=== PATIENT | male | born 1950 | race Caucasian/White ===

== ENCOUNTER 2016-04-09 11:30 | Inpatient (IN) | payer MEDICARE ==
--- NOTE | 2016-06-01 12:17 | HP ---
DATE OF CLINIC: 05/16/16 THIEN JOHNSON : 1950 PLANNED PROCEDURE: Right total knee arthroplasty DATE OF PROCEDURE: June 04, 2016 SURGEON: Dr. Michael Lora MD PCP: Dr. Ras Daily HISTORY OF PRESENT ILLNESS Thien Johnson is a 65 year old male. * Medication list reviewed with patient allergy list reviewed with patient. Mr. Johnson is in today pre-operatively for his upcoming right total knee arthroplasty with Dr. Lora on 06/04/16. Patient presents in good spirits and is eager to proceed. He denies recent illness or change in health. He does note remotely following a sinus surgery that he became bradycardic in the high 20's post-operatively. He recovered without complication. He does have sinus bradycardia with a first degree block for which he states he is asymptomatic. No other surgical complications. Current labs are pending. His recent consult with Dr. Lora follows. Mr. Johnson is a 65-year-old male who I previously saw 09/07/15 after referral from [facility] for discussion of right knee issues. He has progressive weightbearing related discomfort over the last several years. This was worse with loaded flexion. It has become quite limiting for him. He has prior radiographs from 07/28/15 showing tricompartmental degenerative changes with medial compartment narrowing, mild lateral irregularity and lateral chondrocalcinosis. He has involvement of the patellofemoral articulation as well. Of note, he has had prior significant temporary improvement with intraarticular corticosteroid. After I saw him in August he was sent for viscosupplementation and has been through 3 injections with [facility] completing 10/20/15. He has had some improvement, but continues to feel a sensation of instability and difficulty with prolonged weightbearing. He has been doing water based exercise and "the pool has made a huge difference". He is interested in consideration of definitive management given his persisting limitations. No recent illnesses, no significant comorbidities. CURRENT MEDICATION * Aspirin 325 MG Tablet 1 once a day 0 days, 0 refills * B Complex Vitamins Capsule as directed 0 days, 0 refills * Curcumin Powder as directed 375, 0 days, 0 refills * Vitamin D 2000 UNIT Tablet as directed 0 days, 0 refills PAST MEDICAL/SURGICAL HISTORY Reported: Medical: History of Arthritis. Surgical / Procedural: Prior surgery Nose-diviated septum 06/2000. SOCIAL HISTORY Behavioral: Never smoked. Smoking status: Never smoker. Alcohol: Alcohol 1 a day. Drug Use: Using marijuana History of. Work: Retired. ALLERGIES * No Known Allergies FAMILY HISTORY 2 children living Family medical history Depression-Mother Cancer mother Heart disease Father REVIEW OF SYSTEMS Systemic: No fever and no recent weight change. Head: No head symptoms. Cardiovascular: No cardiovascular symptoms h/o sinus shimon and 1st degree AV block. Pulmonary: No pulmonary symptoms. Gastrointestinal: No gastrointestinal symptoms. Psychological: No psychological symptoms. Skin: No skin lesions and no rash. PHYSICAL FINDINGS * Vitals taken 05/16/2016 03:07 pm BP-Sitting R 113/86 mmHg 100 - 120/60 - 80 BP Cuff Size Regular Pulse Rate-Sitting 55 bpm 50 - 100 Temp-Oral 97 F 96 - 101 Height 70 in 64 - 74 Weight 230 lbs 123 - 215 Body Mass Index 33.0 kg/m2 Body Surface Area 2.22 m2 Pain Level 2 Ears, Nose, Throat: * ENT: normal. Lungs: * Clear to auscultation. Cardiovascular: Heart Rate And Rhythm: * Abnormal sinus bradycardia, 1st degree AV block. Abdomen: * Normal. Neurological: Motor: * Dominant Hand = Right Hand. Patient is an obese male in no acute distress, normal-appearing mood and affect. He has a mildly stiff-legged gait at startup bilaterally. On standing he has relatively normal alignment that is symmetric. Right knee exam shows skin integrity to be well-preserved, no wounds, rashes or lesions. Mild swelling, no gross effusion. Motion is 5-120 degrees. No focal medial or lateral jointline tenderness, although some diffuse mild discomfort. No significant pain with Audrey's. He does have mild pain and crepitation with patellar compression. Ligamentous exam is intact for cruciates and collaterals. Mildly tender over the anteromedial proximal tibia. Calf is soft and NT. No thigh or calf atrophy or asymmetry compared to the contralateral side, but relatively poor defined musculature bilaterally. Distal neurovascular exam is intact and symmetric. Gentle rotation of the hip is nonirritable. Sitting SLR is negative. Contralateral knee shows skin integrity is well preserved, no wounds, rashes or lesions. No swelling or gross effusion. Reasonable alignment. Motion is 0-130 degrees. No periarticular tenderness. Normal ligamentous exam. TESTS Prior xrays are as noted above. ASSESSMENT * Localized primary osteoarthritis of the right knee DJD, right knee. THERAPY * Patient fall risk screen negative. * Patient eligible for fall risk assessment. Patient received fall risk assessment. PLAN * Unilateral primary osteoarthritis, right knee Physical Therapy: *Other * OTHER OxyCONTIN 10 MG T12A, 1 po q 12 hours-TO BE USED FOR AFTER SURGERY, 10 days, 0 refills TraMADol HCl 50 MG TABS, 1 po q 6 hours prn pain-TO BE USED FOR AFTER SURGERY, 5 days, 0 refills OxyCODONE HCl 5 MG TABS, 1-2 po q 4 hours for break thru pain if needed-TO BE USED FOR AFTER SURGERY, 5 days, 0 refills * Total knee arthroplasty -Right Discussed with patient in detail the limitations, expectations as well as risks and possible complications of surgery including, but not limited to wound problems or infection, neurovascular injury, continued knee pain or dysfunction, including the possibility of prosthetic wear or failure over time that may require additional operative or nonoperative treatment. Patient also realizes the perioperative risks including risks associated with anesthesia and would like to proceed. A full PAR conference was held, questions and concerns addressed and informed consent was obtained. Patient will be sent from my office for completion of the preoperative workup. [facility] consult for perioperative medical management. Patient will use aspirin 325mg daily for 6 weeks postoperatively for DVT prophylaxis. Patient would like to perform their postop PT at [facility] with right total knee arthroplasty protocol. CARE TEAM Ras Daily MD [facility] CC: Ras Daily MD [facility]
[2016-06-04] MEDS ORDERED: LACTATED RINGERS 1,000 ML ONE (06:00)
[2016-06-04] MEDS ORDERED: IV START KIT ONE (06:01)
[2016-06-04] MEDS ORDERED: CEFAZOLIN SODIUM 2 GRAM PREMIX 100 ML IV ONE (06:36)
[2016-06-04] MEDS ORDERED: ONDANSETRON 4 MG/2ML 2 ML VIAL IV ONE (06:45)
[2016-06-04] MEDS ORDERED: CLONIDINE HCL 0.1 MG/24 HR (7 DAY PATCH) TD SCH (06:45)
[2016-06-04] MEDS ORDERED: CELECOXIB 200 MG CAPSULE PO ONE (06:45)
[2016-06-04] MEDS ORDERED: BUPIVACAINE 0.25% (MDV) 24 ML, MORPHINE SULFATE 8 MG, EPINEPHRINE 0.3 MG in SODIUM CHLO... IF PRN (06:45)
[2016-06-04] MEDS ORDERED: TRAMADOL HCL 50 MG TABLET PO ONE (06:45)
[2016-06-04] MEDS ORDERED: FAMOTIDINE 20 MG TABLET PO ONE (06:45)
[2016-06-04] MEDS ORDERED: TRANEXAMIC ACID 1,000 MG in SODIUM CHLORIDE 0.9% 100 ML IV PRN (06:45)
[2016-06-04] MEDS ORDERED: BUPIVACAINE 0.25% (MDV) 20 ML in SODIUM CHLORIDE 0.9% FLUSH 20 ML IF PRN (06:45)
[2016-06-04] MEDS ORDERED: GABAPENTIN 600 MG TABLET PO ONE (06:45)
[2016-06-04] MEDS ORDERED: OXYCODONE HCL 10 MG TAB.SR PO ONE ×2 (06:45→07:29)
[2016-06-04] MEDS ORDERED: POLYMYXIN B SULFATE 500,000 UNITS, BACITRACIN 25,000 UNITS in SODIUM CHLORIDE 3 L IRRIG... IR PRN (06:45)
[2016-06-04] MEDS ORDERED: CEFAZOLIN SODIUM 2 GRAM PREMIX 100 ML IV PRN (06:45)
[2016-06-04] MEDS ORDERED: GABAPENTIN 600 MG TABLET ONE (07:29)
[2016-06-04] MEDS ORDERED: ONDANSETRON 4 MG/2ML 2 ML VIAL ONE ×2 (07:29→10:27)
[2016-06-04] MEDS ORDERED: CLONIDINE HCL 0.1 MG/24 HR (7 DAY PATCH) TD ONE (07:29)
[2016-06-04] MEDS ORDERED: TRAMADOL HCL 50 MG TABLET ONE (07:29)
[2016-06-04] MEDS ORDERED: FAMOTIDINE 20 MG TABLET ONE (07:29)
[2016-06-04] MEDS ORDERED: FENTANYL 100 MCG/2 ML VIAL ONE (07:30)
[2016-06-04] MEDS ORDERED: CELECOXIB 200 MG CAPSULE ONE (07:30)
[2016-06-04] MEDS ORDERED: MIDAZOLAM HCL 1 MG/ML 2ML VIAL ONE ×2 (07:30→09:13)
[2016-06-04] MEDS ORDERED: NERVE BLOCK PROCEDURAL TRAY 1 EACH ONE (07:59)
[2016-06-04] MEDS ORDERED: ROPIVACAINE 0.5% 30 ML VIAL ONE (08:00)
[2016-06-04] MEDS ORDERED: SPINAL PROCEDURAL TRAY 1 EACH ONE (08:46)
[2016-06-04] MEDS ORDERED: LIDOCAINE 2% (PRES FREE) 5 ML VIAL ONE (09:17)
[2016-06-04] MEDS ORDERED: PROPOFOL 20 ML IV ONE ×3 (09:17→10:43)
[2016-06-04] MEDS ORDERED: FENTANYL 100 MCG/2 ML VIAL IV PRN (10:56)
[2016-06-04] MEDS ORDERED: HYDROMORPHONE HCL 1 MG/ML SYRINGE IV PRN (10:56)
[2016-06-04] MEDS ORDERED: PROMETHAZINE HCL 25 MG/ML VIAL IM PRN (10:56)
[2016-06-04] MEDS ORDERED: MEPERIDINE 25 MG/ML SYRINGE IV PRN (10:56)
[2016-06-04] MEDS ORDERED: ONDANSETRON 4 MG/2ML 2 ML VIAL IV PRN ×2 (10:56→11:59)
[2016-06-04] MEDS ORDERED: ON-Q PUMP/ROPIVACAINE 0.2% 450 ML in PREMIX BAG 1 EACH NB PRN ×2 (10:56→11:59)
[2016-06-04] MEDS ORDERED: ATROPINE SULFATE 0.4 MG/1 ML VIAL IV PRN (10:56)
[2016-06-04] MEDS ORDERED: NALOXONE HCL 0.4 MG/ML VIAL IV PRN (10:56)
[2016-06-04] MEDS ORDERED: GLYCOPYRROLATE 0.2 MG/ML 1ML VIAL ONE ×2 (10:59→11:04)
[2016-06-04] MEDS ORDERED: LACTATED RINGERS 1,000 ML IV SCH (11:00)
--- NOTE | 2016-06-04 11:16 | PCMBPN ---
Brief Post Op Note: Date of Procedure: 06/04/16 Preoperative Diagnosis: DJD right knee Postoperative Diagnosis: 1. [Same] Procedure: right TKA Surgeon: Michael Lora MD Assist: Caesar (GORDY) Anesthesia: spinal/add block ([place]) Condition: stable to PAR Complications: none IV Fluids: 1600 mLs of LR Urine Output: 200 mLs Estimated Blood Loss: 200 mLs Tourniquet Time: ~45 minutes Specimens: [N/A] Implants: Journey Drains: none
[2016-06-04] MEDS ORDERED: ON-Q PUMP/ROPIVACAINE 0.2% 450 ML ONE (11:29)
--- NOTE | 2016-06-04 11:41 | OP ---
NATHALIE TALAMANTES [id number] : 1950 DATE OF SURGERY: June 04, 2016 PREOPERATIVE DIAGNOSIS: Degenerative joint disease right knee POSTOPERATIVE DIAGNOSIS: Same PROCEDURE: Right Total Knee Arthroplasty COMPONENTS: Journey size 7 BCS Oxinium cemented femoral component, size 7 tibial base plate, 9mm BCS cross-linked polyethylene articular insert, 38mm resurfacing patella. SURGEON: Michael Lora M.D. MANAGER WATER WASTEWATER: Caesar SUTHERLAND) ANESTHESIA: Spinal plus adductor nerve block per [place]. ESTIMATED BLOOD LOSS: 200 cc IV FLUID REPLACEMENT: per anesthesia, 1.6 liters crystalloid. URINE OUTPUT: 200 cc DRAINS: None TOURNIQUET TIME: Approximately 45 minutes COMPLICATIONS: None HISTORY: Briefly, patient is a 65-year-old male with clinical and radiographic evidence of advanced degenerative disease of their right knee. They have failed traditional non-operative management and desire elective total knee arthroplasty. For additional details, please refer to the previously dictated Preoperative History and Physical Examination. A PAR conference was held, questions and concerns were addressed, and informed consent was obtained. FINDINGS: Tricompartmental changes. There is chondrocalcinosis within all 3 compartments. He has more significant medial changes as well as the trochlear groove. He had an approximately 5 degree flexion contracture under anesthesia. PROCEDURE: The patient was taken to the operating room after the placement of a spinal anesthetic and regional nerve block. They were placed supine on the operating room table, a tourniquet was applied to the proximal thigh and the right lower extremity was prepped and draped out in the usual sterile fashion. Preoperative IV antibiotics were given empirically. Intraoperative DVT prophylaxis consisted of contralateral foot pumps. Personal filtration suits were used as was a closed room environment. A WHO timeout was taken. Surgical site was identified and confirmed. The leg was then elevated and the tourniquet inflated after gravity exsanguination. This was released after initial exposure and not utilized again until cementation. Tranexamic acid was infiltrated over 10 minutes prior to incision, 1 gram dose per protocol. A similar 2nd dose was given at initiation of closure. With the knee flexed, an anteromedial incision was made from the level of the tibial tubercle to two centimeters proximal to the superior pole of the patella. A medial arthrotomy was performed with a mini-mid vastus approach. A medial subperiosteal proximal tibial release was performed and a portion of the anterior fat pad was excised to improve visualization. The supra-patellar pouch was raised subperiosteally. The anterior and posterior cruciate ligaments were excised as were the remaining portions of the anterior horns of the medial and lateral menisci. Minimally invasive instrumentation and philosophy were used throughout the procedure in an attempt to decrease the extent of soft tissue disruption/damage. Patient matched cutting blocks were also used as per our preoperative plan. The [employer] patient matched distal femoral cutting block was applied and secured to the bone. We confirmed that the alignment matched our preoperative plan and made the distal femoral cut. We confirmed the size of the femur and placed the appropriate 5-in-1 cutting block making our anterior and posterior condylar cuts followed by the chamfer cuts. Residual marginal osteophytes were removed. Attention was then directed to the tibia which was retracted anteriorly. Remaining meniscal tissue was excised. The Visionaire patient matched tibial block was then positioned and secured to bone. Alignment was confirmed as per our preoperative plan and the proximal tibial cut made. The tibia was sized and we passed the 11 mm. punch. We then balanced the flexion and extension gaps by performing a limited posterior capsular release. We confirmed hemostasis. We then completed the femoral preparation by reaming and chiseling the notch. Femoral and tibial trial components were placed. We were able to obtain full extension with nice roll back and good coronal plane alignment and stability. The patella tracked well and was prepared using the Stephania patellar reaming system removing 9 mm. of bone. Osteophytes were removed prior to this with a rongeur and we performed a circumferential limited denervation using cautery. This was sized accordingly and punch holes were drilled. We marked our tibial rotation and removed the trial components after passing the cruciform tibial punch. The knee was then re-exsanguinated and the tourniquet inflated. Double antibiotic pulsatile lavage was used to irrigate the knee and clean the cancellous ayan interstices which were then carefully dried. Periarticular injection was done at this point per protocol of the posterior capsule, posteromedial knee and synovium. Two doses of high viscosity, antibiotic impregnated polymethylmethacrylate were used to cement the tibial, femoral, and then patellar components. The knee was held in extension while the cement cured. All residual methacrylate was meticulously removed. Attention was then directed towards closure. We irrigated and the retinaculum was closed with a running #2 absorbable Strato-Fix suture. A second periarticular injection was done at this point per protocol. The repair was checked in maximum flexion. We then lightly irrigated the subcutaneous tissue and closed with interrupted 2-0 and 3-0 Vicryl Plus. The skin was then reapproximated with a subcuticular 4-0 Monocryl followed by Dermabond Prineo. A sterile compression dressing was applied. The patient was then transferred to their hospital bed and sent to the post anesthesia recovery room in stable condition. They tolerated the procedure well. Sponge, instrument, and needle count were correct. CC: Ras Daily MD [facility]
[2016-06-04] MEDS ORDERED: TEMAZEPAM 15 MG CAPSULE PO PRN (11:59)
[2016-06-04] MEDS ORDERED: HYDROMORPHONE HCL 0.5 MG/0.5 ML SYRINGE IV PRN (11:59)
[2016-06-04] MEDS ORDERED: CALCIUM CARBONATE 500 MG TAB.CHEW PO PRN (11:59)
[2016-06-04 12:11] VITALS: BMI 31.6
--- NOTE | 2016-06-04 13:17 | RAD ---
KNEE RIGHT 1 OR 2 VIEWS COMPARISON: Right knee 4 views, 07/28/2015 HISTORY: Immediately postop right total knee arthroplasty. VIEWS: Right knee AP and crosstable lateral. FINDINGS: Bones: Normal. Joints: Satisfactory appearance of the right total knee arthroplasty. Soft tissue: Normal. IMPRESSION: Satisfactory appearance of the right total knee arthroplasty.
[2016-06-04] MEDS ORDERED: PUMP TUBING ONE (13:38)
[2016-06-04] MEDS: D5 1/2NS with 20 mEq KCL 1,000 ML IV SCH (13:42)
[2016-06-04] MEDS: KETOROLAC TROMETHAMINE 30 MG/ML 1 ML VIAL IV PRN (15:04)
[2016-06-04] MEDS: OXYCODONE HCL 5 MG TABLET PO PRN ×2 (15:37→21:09)
[2016-06-04] MEDS: CEFAZOLIN SODIUM 1 GRAM PREMIX 1 G in Premix (D5W) 50 ml 1 EACH IV SCH (16:49)
[2016-06-04] MEDS: ACETAMINOPHEN 500 MG TABLET PO SCH (17:31)
[2016-06-04] MEDS: DOCUSATE SODIUM 100 MG CAPSULE PO SCH (21:09)
[2016-06-04] MEDS: ASCORBIC ACID 500 MG TABLET PO SCH (21:09)
[2016-06-05] MEDS ORDERED: CEFAZOLIN SODIUM 1 GRAM PREMIX 50 ML IV ONE (00:14)
[2016-06-05] MEDS: ACETAMINOPHEN 500 MG TABLET PO SCH ×4 (00:16→17:28)
[2016-06-05] MEDS: CEFAZOLIN SODIUM 1 GRAM PREMIX 1 G in Premix (D5W) 50 ml 1 EACH IV SCH (00:16)
[2016-06-05] MEDS: KETOROLAC TROMETHAMINE 30 MG/ML 1 ML VIAL IV PRN (00:22)
[2016-06-05] MEDS: D5 1/2NS with 20 mEq KCL 1,000 ML IV SCH ×4 (00:54→20:25)
[2016-06-05] MEDS: OXYCODONE HCL 5 MG TABLET PO PRN ×5 (02:27→20:31)
[2016-06-05] MEDS ORDERED: REMOVE PATCH 1 EACH UNIT TD SCH (06:45)
[2016-06-05 06:47] LABS: HEMATOCRIT 32.3 % (32.0-52.0); HEMOGLOBIN 10.8 gm/l (14.0-18.0); MEAN CELL VOLUME 98.5 fl (80.0-94.0); MEAN CORPUSCULAR HEMOGLOBIN 32.9 pg (27.0-31.0); MEAN CORPUSCULAR HGB CONC 33.4 g/dl (33.0-37.0); RED CELL DISTRIBUTION WIDTH 11.9 % (11.5-14.5)
[2016-06-05 07:04] LABS: CALCIUM 8.3 mg/dL (8.6-10.3)
--- NOTE | 2016-06-05 07:32 | PDOC43 ---
- Subjective Findings: Pt seen this morning up and doing fine at this point. Pain seems controlled. He is ready to get out of bed. Subjective: Reports Pain Tolerable, Denies Flatus, Denies Chest Pain, Denies Shortness of Breath, Denies Nausea, Denies Vomiting - Objective Vital Signs Temperature 98.4 F 06/05/16 03:54 Pulse Rate 57 06/05/16 03:54 Respiratory Rate 16 06/05/16 03:54 Blood Pressure 115/65 06/05/16 03:54 O2 Saturation by Pulse Oximetry 97 06/05/16 03:54 Oxygen Delivery Method Nasal Cannula Oxygen Flow Rate 2 Laboratory 06/05/16 06:10 06/05/16 06:10 06/05/16 06:10 RBC 3.28 L MCV 98.5 H MCH 32.9 H Estimated GFR 113 H Calcium 8.3 L Active Medication Orders Category Date Time Status Acetaminophen [Tylenol] Med 06/04/16 18:00 Active 1,000 mg PO Q6H Ascorbic Acid [Vitamin C] Med 06/04/16 21:00 Active 500 mg PO BID Aspirin (Enteric Coated) [Ecotrin] Med 06/05/16 09:00 Active 325 mg PO DAILY Bisacodyl [Dulcolax] Med 06/07/16 11:06 Active 10 mg HI DAILY PRN Calcium Carbonate [Tums] Med 06/04/16 11:59 Active 1,000 - 2,000 mg PO Q2H PRN Celecoxib [Celebrex] Med 06/05/16 09:00 Active 200 mg PO DAILY D5 1/2NS with 20 mEq KCL [D51/2NS with 20 mEq KCL] 1, Med 06/04/16 11:59 Active 000 ml IV 125 mls/hr Docusate Sodium [Colace] Med 06/04/16 21:00 Active 100 mg PO BID Hydromorphone HCl [Dilaudid] Med 06/04/16 11:59 Active 0.5 mg IV Q1H PRN Ketorolac Tromethamine [Toradol] Med 06/04/16 11:59 Active 30 mg IV Q6H PRN Magnesium Hydroxide [Milk of Magnesia] Med 06/05/16 11:06 Active 30 ml PO DAILY PRN Multivitamins [One-A-Day] Med 06/05/16 09:00 Active 1 tab PO DAILY On-Q Pump/Ropivacaine 0.2% 450 ml Med 06/04/16 11:59 Active Premix Bag [Premix Fluid] 1 each NB Q50H Ondansetron 4 mg/2ml Vial [Zofran] Med 06/04/16 11:59 Active 4 - 6 mg IV Q6H PRN Oxycodone HCl [Roxicodone] Med 06/04/16 11:59 Active 5 - 10 mg PO Q4H PRN Remove Patch Med 06/05/16 11:06 Once 1 each TD X1 ONE Sodium Chloride 0.9% Flush [Normal Saline 10ml Flush] Med 06/04/16 11:59 Active 10 - 50 ml IV PRN PRN Sodium Chloride 0.9% Flush [Normal Saline 10ml Flush] Med 06/04/16 17:00 Active 10 ml IV Q8HR Temazepam [Restoril] Med 06/04/16 11:59 Active 15 mg PO BEDTIME PRN Tramadol HCl [Ultram] Med 06/04/16 17:30 Active 50 mg PO Q6H PRN Vitamin D3 Med 06/05/16 09:00 Active 1,000 units PO DAILY Intake and Output 06/03/16 06/04/16 06/05/16 23:59 23:59 23:59 Intake Total 3814 1150 Output Total 1050 1450 Balance 2764 -300 General: Afebrile HEENT: Atraumatic Lungs: Normal Air Movement Abdomen: Non-Distended Skin: Normal Color Neurological: Alert, Oriented x 4 Psych/Mental Status: Normal Mood - Right Lower Extremity Motor: Extensor Hallucis Longus: 5/5, Tibialis Anterior: 5/5, Gastrocnemius: 5/5 , Peroneals: 5/5, Quadriceps: 3/5 Gross Sensation to Light Touch: Present: Deep Peroneal Nerve, Superficial Peroneal Nerve Capillary Refill: < 3 Seconds Motion: Calf soft NT Does have a little tenderness around his Achilles tendon distally but no skin breakdown/tendon intact. Knee Rom 0-65 Min assist with SLR - Problems (1) Status post right knee replacement Status: AcuteAssessment/Plan: Pod#1 1. Physical Therapy: Mobilize with PT/OT, encouraged bed exercise 2. Pain Control:Per protocol and nerve cath 3. DVT Prophylaxis: ASA, foot pumps and mobility 4. Disposition:Doing fine at this point 5. Medical Issues:Acute blood loss anemia - asymptomatic. Will monitor H/H. Anticipate d/c tomorrow
[2016-06-05] MEDS: MULTIVITAMINS 1 TAB TABLET PO SCH (08:19)
[2016-06-05] MEDS: ASPIRIN (ENTERIC COATED) 325 MG TABLET.EC PO SCH (08:19)
[2016-06-05] MEDS: VITAMIN D3 1,000 UNITS CAP.LIQ PO SCH (08:19)
[2016-06-05] MEDS: DOCUSATE SODIUM 100 MG CAPSULE PO SCH ×2 (08:19→20:31)
[2016-06-05] MEDS: ASCORBIC ACID 500 MG TABLET PO SCH ×2 (08:19→20:31)
[2016-06-05] MEDS ORDERED: CELECOXIB 200 MG CAPSULE PO SCH (09:00)
[2016-06-05] MEDS ORDERED: REMOVE PATCH 1 EACH UNIT TD ONE (11:06)
[2016-06-05] MEDS: TRAMADOL HCL 50 MG TABLET PO PRN ×2 (14:07→21:59)
[2016-06-05] MEDS: MAGNESIUM HYDROXIDE 30 ML UDCUP PO PRN (16:21)
[2016-06-06] MEDS: ACETAMINOPHEN 500 MG TABLET PO SCH ×3 (00:17→11:58)
[2016-06-06] MEDS: OXYCODONE HCL 5 MG TABLET PO PRN ×3 (00:22→09:27)
[2016-06-06] MEDS: D5 1/2NS with 20 mEq KCL 1,000 ML IV SCH (03:23)
[2016-06-06] MEDS: MAGNESIUM HYDROXIDE 30 ML UDCUP PO PRN (05:45)
[2016-06-06 06:47] LABS: HEMATOCRIT 31.6 % (32.0-52.0); HEMOGLOBIN 10.7 gm/l (14.0-18.0)
--- NOTE | 2016-06-06 08:23 | PDOC43 ---
- Subjective Findings: Pt seen this am up and doing better. He feels much improved from yesterday. States he would like to go home today. Subjective: Reports Flatus, Reports Pain Tolerable, Denies Chest Pain, Denies Shortness of Breath, Denies Nausea, Denies Vomiting, Denies Fever - Objective Vital Signs Temperature 98.2 F 06/06/16 07:28 Pulse Rate 67 06/06/16 07:28 Respiratory Rate 16 06/06/16 07:45 Blood Pressure 135/82 06/06/16 07:28 O2 Saturation by Pulse Oximetry 95 06/06/16 07:28 Oxygen Delivery Method Room Air Oxygen Flow Rate 0 Laboratory 06/06/16 06:15 06/05/16 06:10 Active Medication Orders Category Date Time Status Acetaminophen [Tylenol] Med 06/04/16 18:00 Active 1,000 mg PO Q6H Ascorbic Acid [Vitamin C] Med 06/04/16 21:00 Active 500 mg PO BID Aspirin (Enteric Coated) [Ecotrin] Med 06/05/16 09:00 Active 325 mg PO DAILY Bisacodyl [Dulcolax] Med 06/07/16 11:06 Active 10 mg [place] DAILY PRN Calcium Carbonate [Tums] Med 06/04/16 11:59 Active 1,000 - 2,000 mg PO Q2H PRN Celecoxib [Celebrex] Med 06/05/16 09:00 Active 200 mg PO DAILY D5 1/2NS with 20 mEq KCL [D51/2NS with 20 mEq KCL] 1, Med 06/04/16 11:59 Active 000 ml IV 125 mls/hr Docusate Sodium [Colace] Med 06/04/16 21:00 Active 100 mg PO BID Hydromorphone HCl [Dilaudid] Med 06/04/16 11:59 Active 0.5 mg IV Q1H PRN Magnesium Hydroxide [Milk of Magnesia] Med 06/05/16 11:06 Active 30 ml PO DAILY PRN Multivitamins [One-A-Day] Med 06/05/16 09:00 Active 1 tab PO DAILY On-Q Pump/Ropivacaine 0.2% 450 ml Med 06/04/16 11:59 Active Premix Bag [Premix Fluid] 1 each NB Q50H Ondansetron 4 mg/2ml Vial [Zofran] Med 06/04/16 11:59 Active 4 - 6 mg IV Q6H PRN Oxycodone HCl [Roxicodone] Med 06/04/16 11:59 Active 5 - 10 mg PO Q4H PRN Sodium Chloride 0.9% Flush [Normal Saline 10ml Flush] Med 06/04/16 11:59 Active 10 - 50 ml IV PRN PRN Sodium Chloride 0.9% Flush [Normal Saline 10ml Flush] Med 06/04/16 17:00 Active 10 ml IV Q8HR Temazepam [Restoril] Med 06/04/16 11:59 Active 15 mg PO BEDTIME PRN Tramadol HCl [Ultram] Med 06/04/16 17:30 Active 50 mg PO Q6H PRN Vitamin D3 Med 06/05/16 09:00 Active 1,000 units PO DAILY Intake and Output 06/04/16 06/05/16 06/06/16 23:59 23:59 23:59 Intake Total 3814 2380 1620 Output Total 1050 3075 1200 Balance 2764 -695 420 General: Afebrile HEENT: Atraumatic Lungs: Normal Air Movement Abdomen: Non-Distended Skin: Normal Color Neurological: Alert, Oriented x 4 Psych/Mental Status: Normal Mood - Right Lower Extremity Incision: Well Approximated, No Drainage, No Erythema Motor: Extensor Hallucis Longus: 5/5, Tibialis Anterior: 5/5, Gastrocnemius: 5/5 , Peroneals: 5/5, Quadriceps: 3/5 Gross Sensation to Light Touch: Present: Deep Peroneal Nerve, Superficial Peroneal Nerve Capillary Refill: < 3 Seconds Motion: Calf soft NT Knee Rom 0-70 Min assist with SLR - Problems (1) Status post right knee replacement Status: AcuteAssessment/Plan: Pod# 1. Physical Therapy: Mobilize with PT/OT, encouraged bed exercise. D/C today after PTx2 2. Pain Control:Per protocol and nerve cath 3. DVT Prophylaxis: ASA, foot pumps and mobility 4. Disposition:Doing well. D/C this afternoon if meets criteria 5. Medical Issues:Acute blood loss anemia - asymptomatic. D/C today after PTx2
[2016-06-06] MEDS ORDERED: CELECOXIB 200 MG CAPSULE PO SCH ×2 (09:00)
[2016-06-06] MEDS: ASPIRIN (ENTERIC COATED) 325 MG TABLET.EC PO SCH (09:27)
[2016-06-06] MEDS: DOCUSATE SODIUM 100 MG CAPSULE PO SCH (09:27)
[2016-06-06] MEDS: MULTIVITAMINS 1 TAB TABLET PO SCH (09:27)
[2016-06-06] MEDS: VITAMIN D3 1,000 UNITS CAP.LIQ PO SCH (09:27)
[2016-06-06] MEDS: ASCORBIC ACID 500 MG TABLET PO SCH (09:27)
[2016-06-06 11:51] VITALS: BP 132/75
[2016-06-07] MEDS ORDERED: BISACODYL 10 MG SUP PR PRN (11:06)
--- NOTE | 2016-06-07 11:36 | DS ---
NATHALIE TALAMANTES [id number] : 1950 DATE OF ADMISSION: 06/04/16 DATE OF DISCHARGE: 06/06/16 DISCHARGE DIAGNOSES: Right knee osteoarthritis HOSPITAL PROCEDURES: Right total knee arthroplasty SURGEON: Michael Lora M.D. BRIEF HISTORY: Patient is a 65-year-old male with clinical and radiographic evidence of advanced DJD of their right knee. For the full history please see the chart note. BRIEF HOSPITAL COURSE: Patient was admitted on 06/04/16. Dr. Michael Lora performed a right total knee arthroplasty. They were moved to the recovery room in stable condition. They were given 4 doses of antibiotic for empiric coverage. DVT prophylaxis consisted of enteric coated aspirin, CK hose and AV foot pumps. PT was instituted postop day 0 with right total knee arthroplasty protocol, weightbearing as tolerated. Their incision site remained benign, their vital signs remained stable and they remained neurally and vascularly intact through the duration of the stay. They were discharged home on postop day 2 to continue their outpatient PT at [facility] with right total knee arthroplasty protocol, weightbearing as tolerated. DISCHARGE INSTRUCTIONS: 1. Keep the wound site clean. May shower and pat incision site dry, but do not soak until f/u. Call office with any questions or concerns and f/u for your dressing change as scheduled 1 week postop. 2. Continue the use of CK hose bilaterally. 3. Cooling unit 3-4 times daily for 30 minutes duration. 4. Outpatient PT at [facility] for right total knee arthroplasty protocol, weightbearing as tolerated. MEDICATIONS: 1. Patient is to resume normal preop medications. 2. Anti-coagulation will be with enteric coated aspirin, 325mg daily for 6 weeks. 3. Pain management will be with Oxycodone, 5mg 1-2 every 4 hours prn for breakthrough pain, and Celebrex, 200mg, 1 po q day for 2 weeks. 4. Patient was also advised on utilization of a multi-vitamin with mineral daily as well as Vitamin C, 500mg daily for 1 month. 5. Patient encouraged to take an iron supplement in the form of ferrous sulfate, 325mg daily for 4 weeks. 6. Colace, 100mg, b.i.d. until regular bowel movement. FOLLOW-UP: Please return to the clinic as scheduled for your first scheduled postop check. Prior to that point in time please call with any questions or concerns. TR/rajeev CC: Idris MARIN
== END 2016-06-06 12:25 | disposition home or self-care (01) | DRG 470 ==
LOC: OR 06-04 06:48 → MS 06-04 12:05
PROVIDERS: ADMIT Orthopaedic Surgery; ATTEND Orthopaedic Surgery
PROC: 0SRC0J9 Replacement of Right Knee Joint with Synthetic Substitute, Cemented, Open Approach (ICD-10-PCS; principal; 2016-06-04)
PROC: 3E0T3CZ (ICD-10-PCS; 2016-06-04)
DX: M17.11 Unilateral primary osteoarthritis, right knee (principal)